=== PATIENT | female | born 1985 | race Caucasian/White ===

== ENCOUNTER 2022-04-28 11:25 | Inpatient (IN) | payer OTHER, SELFPAY ==
[2022-04-28] VITALS (29 sets, daily range): BP systolic 92–133; BP diastolic 55–85; PULSE 85–145; RESP 15–16; TEMP 36.7–37.2; O2SAT 96–100; BMI 25.1
[2022-04-28] MEDS: CEFAZOLIN 2 GM in 0.9 % SODIUM CHLORIDE Mini-bag 100 ML IVPB (11:54)
[2022-04-28] MEDS: LIDOCAINE 1 % PF 30 ML INJECTION ×2 (12:00→12:20)
[2022-04-28] MEDS: KETOROLAC 30 MG/ML inj IVP (12:06)
[2022-04-28] MEDS: fentaNYL 100 MCG/2 ML inj IVP (12:06)
[2022-04-28 12:18] LABS: Basophils Percent Auto 0.1 % (0.0-3.0); Hemoglobin* 11.5 gm/dL (12.0-16.0); Mean Corpuscular HGB Conc 34 gm/dL (32-36); Mean Corpuscular Hemoglobin 32 pg (26-34); Mean Corpuscular Volume 94 fL (80-100); Monocytes Percent Auto 7.1 % (0.0-11.0); Neutrophils Percent Auto 88.4 % (42.0-72.0); Platelet Count* 228 K/uL (140-440); RDW Coefficient of Variation % 13.1 % (11.5-15.5)
[2022-04-28 12:29] LABS: White Blood Count* 44.29 K/uL (4.50-11.00)
[2022-04-28 12:30] LABS: INR 0.99 (0.91-1.10); Prothrombin Time 13.5 Seconds; Slide Review Reflex Yes
[2022-04-28 12:31] LABS: Fibrinogen* 345 mg/dL (200-450); Partial Thromboplastin Time* 28 Seconds (23-33)
--- NOTE | 2022-04-28 12:48 | W.PM.LDBA ---
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 Patient was 39 4/7 weeks. Purchasing Manager who is here with patient and came with patient on the ambulance, states that her EBL from delivery was about 1700mL. She identified a perineal laceration and was concerned it was a 3rd degree laceration. She also had to manually remove the placenta after incomplete removal initially. Patient received 2 injections of 10 units of Oxytocin and 800mcg of rectal cytotec. We were called by marshmallow machine worker en route to hospital by ambulance. Upon arrival patient was alert, active and oriented, baby was with her at her chest. She had one IV line in place and had received 1 liter of fluid. Vital signs notable for tachycardia in the 115-130s range. Normal blood pressure, normal O2 saturation. Baby was placed in the warmer and evaluated by pie bakery laborer please refer to his note for further details. A second IV line was obtained ALEXANDRO. 1g Tranexamic acid was given. Due to previous manipulation during home delivery and my further uterine manipulation I also recommended giving 2g of Ancef. Patient states that she started with contractions las night, she was admitted by care team at 5:22am and delivered at 9:37am. Purchasing Manager will be faxing evidence of care and lab work results, by verbal communication we were told patient is RH negative, GBS negative. Received evidence of care from [facility]: LMP: 07/25/2021, OSVALDO: 05/01/22 First visit: 09/06/21, total visits 13 Labs: 04/01/22: GBS negative, BV and yeast diagnosed (treated with PO Diflucan and Flagyl) 03/04/22: >100,000 colonies of E.Coli (Treated with Macrobid) 02/04/22: 28 week labs: Antibody scree negative, Hgb: 12g/dL, hematocrit: 42.9, Platelets: 203 01/31/22: FBS: 81, 4io23GWF:88, 2 qo23ICB: 92 01/07/22:Hgb: 11.6, AST: 16, ALT: 11, BUN: 5, Creatinine: 0.50 11/19/21; AFP; Screen negative. 09/06/2021: 1st trimester labs: Blood type A negative, hemoglobin 14.2, platelets [id number], negative chlamydia and gonorrhea, rubella non immune, RPR nonreactive, hepatitis-B surface antigen negative, HIV nonreactive, TSH: 1.66, A1c 5.1, normal vitamin-D, hepatitis-C negative. Last Pap Smear: 2020, normal Imagin12/11/2021: Anatomy scan: Single live intrauterine 20 weeks and 2 days, nose/lip view was not well visualized, recommend short-term follow-up. Otherwise normal anatomy scan. There is an anterior placenta. Ob Hx: 2019/ / Home /Girl/ 2nd degree perineal laceration/7 pounds 2021: Current Medical problems: Vegan, Hx LEEP, Hx. of anxiety, cold sores, rubella non immune Medications: Multiple vitamins and supplements Allergies: Sulfa (hives), shellfish Surgeries:Ganglion cyst removal from foot, sinus surgery Social: Non smoker, no alcohol, OB - H&P: Exam Physical Exam: Vital signs: Pulse BP Pulse Ox 121 H 106/55 L 100 04/28/22 12:25 04/28/22 12:25 04/28/22 12:45 Narrative: Gen: AAOx3 Abd: Uterus well contracted at umbilicus. Tender to palpation. Pelvic: A large pad and blue chux removed these were completely soaked, add 500mL to EBL. A second degree perineal laceration was identified and repaired in the usual manner utilizing Vicryl 3-0 after injecting the area with Lidocaine 1% a total of 25mL utilized. Pelvic exam showed large amount of blood clots at the vaginal vault. Bladder was drained and obtained 300mL of concentrated urine. removed a total of 300mL in blood clots. A bedside US was performed and the lower uterine segment seemed to be thicker and more heterogenous it did not show increased vascularity. Recommendation was given for a manual sweep, this returned more blood clots and what looks to be concerning for retained placental tissue. 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 Purchasing Manager states that increased bleeding after delivery associated with perineal laceration and need for manual delivery of retained parts of placenta. EBL prior to arrival 1700mL. Upon evaluation evidence of second degree perineal laceration repaired. Persistent large amount of blood clots and bedside US concerning for retained products of conception/blood clots. My EBL so far 2500-2700mL(adding soaked sponges-still pending to weigh them). Initial lab work shows a normal hemoglobin, hemoglobin most be close to 8-9mg/dL if her hemoglobin was 12mg/dL as per marshmallow machine worker at 36 weeks of . WBC is also significantly elevated, will repeat after she is more stable this most likely independent sales representative of hemoconcentration/dehydration. Recommended suction D&C at OR, discussed how procedure is performed, risks of surgery and signed informed consent. To OR.
[2022-04-28] MEDS: CEFAZOLIN 2 GM INJ IVP (13:36)
--- NOTE | 2022-04-28 14:07 | W.PM.GYNPROC ---
Procedure Note Date Seen: 04/28/22 Procedure Details: Preoperative diagnosis: Retained products of conception Postoperative diagnosis: Same Procedure: Suction uterine curettage Surgeon: Flower Sanderson MD Anesthesia: Monitored anesthesia care IV fluids: Please see anesthesia record EBL: 50 mL Findings: 1. Exam under anesthesia revealed a mobile midline uterus. There are no palpable adnexal masses. 2. Placental membranes and blood clots returned with suction curettage. Complications: None Procedure in detail: Patient was taken to the operating with IV running. 2g of Ancef given preop. She was placed in dorsal lithotomy position. Monitored anesthesia care was administered. She was prepped and draped in the usual sterile fashion. Her bladder was straight cathed. Exam under anesthesia was performed for the above-noted findings. Speculum was inserted. Cervix was grasped along its anterior lip with an Ring forceps. A size 12 rigid suction cannula was then passed through the cervix to the uterine fundus. Suction was applied, and the suction cannula was withdrawn along the path of insertion. This was repeated 3 more times, with obvious return of products of conception. A repeat bedside ultrasound confirmed a homogeneous and thin lower uterine segment. Procedure was deemed complete. The ring forceps was removed from the anterior lip the cervix, and hemostasis was noted. The speculum was then removed from the vagina. Patient tolerated procedure well and was taken recovery area in stable condition.
--- NOTE | 2022-04-28 14:15 | W.ANESCHARGE ---
Anesthesia Charges Start Date/Time Anesthesia Start Date: 04/28/22 Anesthesia Start Time: 13:26 Stop Date/Time Anesthesia Stop Date: 04/28/22 Anesthesia Stop Time: 14:07 Summary Emergency: Yes
[2022-04-28] MEDS: LACTATED RINGERS 1000 ML 1,000 ML 125 ML IV (14:34)
[2022-04-28 17:06] LABS: Basophils Percent Auto 0.1 % (0.0-3.0); Hematocrit 27.9 % (33.0-51.0); Hemoglobin* 9.6 gm/dL (12.0-16.0); Immature Granulocytes Abs Auto 0.21 K/uL (0.00-0.30); Lymphocytes Percent Auto 5.2 % (20-44); Mean Corpuscular HGB Conc 34 gm/dL (32-36); Mean Corpuscular Hemoglobin 32 pg (26-34); Mean Corpuscular Volume 92 fL (80-100); Monocytes Percent Auto 3.5 % (0.0-11.0); Neutrophils Percent Auto 90.6 % (42.0-72.0); Platelet Count* 185 K/uL (140-440); Red Blood Count 3.02 m/uL (4.00-5.20)
[2022-04-28 17:09] LABS: Slide Review Reflex Yes; White Blood Count* 33.32 K/uL (4.50-11.00)
[2022-04-28 17:11] LABS: Slide Review Acceptable Review (Acceptable)
[2022-04-28 17:16] LABS: Chloride* 101 mmol/L (96-114)
[2022-04-28 17:17] LABS: Albumin* 2.8 g/dL (3.3-5.0); Sodium* 129 mmol/L (135-149)
[2022-04-28 17:22] LABS: Fibrinogen* 332 mg/dL (200-450); INR 0.99 (0.91-1.10); Partial Thromboplastin Time* 31 Seconds (23-33); Prothrombin Time 13.5 Seconds
[2022-04-28 17:23] LABS: Alanine Aminotransferase* 37 U/L (4-35); Alkaline Phosphatase* 121 U/L (40-150); Aspartate Amino Transferase* 49 U/L (12-35); Bilirubin Total* 0.2 mg/dL (0.1-1.5); Blood Urea Nitrogen* 6 mg/dL (5-24); Calcium* 8.3 mg/dL (8.4-10.6); Carbon Dioxide* 19 mmol/L (20-32); Creatinine* 0.4 mg/dL (0.5-1.5); Est. Creatinine Clearance* 159.29; Estimated Glomerular Filt Rate 131 ml/min; Glucose* 175 mg/dL (60-115); Total Protein* 5.2 g/dL (6.0-8.3)
[2022-04-28 19:18] LABS: Slide Review Acceptable Review (Acceptable)
[2022-04-28 19:22] LABS: SARS PCR* Negative SARS-CoV-2 (Negative)
[2022-04-28] MEDS: IBUPROFEN 600 MG TABLET PO (20:01)
[2022-04-28 21:31] LABS: Appearance Urine Clear (Clear); Bilirubin Urine Negative (Negative); Blood Urine 3+ (Negative); Color Urine Pink (Yellow); Glucose Urine 1+ (Negative); Ketones Urine Negative (Negative); Leukocyte Esterase Urine Trace (Negative); Nitrite Urine Negative (Negative); Protein Urine 1+ (Negative); Specific Gravity Urine <= 1.005 (1.000-1.030); Urobilinogen Urine 0.2 (0.2-1.0); pH Urine 5.5 (5.0-8.5)
[2022-04-28 21:46] LABS: WBC Urine 0-2 (0-5)
[2022-04-28] MEDS: ACETAMINOPHEN 500 MG TABLET 1000 MG PO (22:56)
[2022-04-29] VITALS (12 sets, daily range): BP systolic 88–119; BP diastolic 47–70; PULSE 79–98; RESP 16–18; TEMP 36.6–37; O2SAT 96–100
[2022-04-29] MEDS: IBUPROFEN 600 MG TABLET PO ×3 (02:22→15:13)
[2022-04-29] MEDS: ACETAMINOPHEN 500 MG TABLET 1000 MG PO (05:13)
[2022-04-29 06:29] LABS: Basophils Percent Auto 0.1 % (0.0-3.0); Eosinophils Percent Auto 0.4 % (0.0-7.0); Hematocrit 23.2 % (33.0-51.0); Immature Granulocytes Abs Auto 0.13 K/uL (0.00-0.30); Lymphocytes Percent Auto 18.1 % (20-44); Mean Corpuscular HGB Conc 34 gm/dL (32-36); Mean Corpuscular Hemoglobin 32 pg (26-34); Mean Corpuscular Volume 94 fL (80-100); Neutrophils Percent Auto 72.9 % (42.0-72.0); Platelet Count* 182 K/uL (140-440); RDW Coefficient of Variation % 13.3 % (11.5-15.5); Red Blood Count 2.46 m/uL (4.00-5.20)
[2022-04-29 06:55] LABS: Hemoglobin* 7.8 gm/dL (12.0-16.0); White Blood Count* 25.91 K/uL (4.50-11.00)
--- NOTE | 2022-04-29 07:56 | PM.OBPNVD1 ---
OB - PN:Subj Subjective Date Seen: 04/29/22 Patient comments OB post-: pain well controlled, tolerating diet, flatus present and other (feels very weak, tired and sore) [place] status: and doing well feeding status: exclusively Narrative: Day 1:? Vaginal Delivery at 39 and 4/7 weeks.? ?? Complications:? PPH, post D&C? The patient feels well.? The pain is well controlled with current medications.? She has no new complaints.? Urinary output is adequate and she is voiding without difficulty.? Has a good appetite, is tolerating a general diet, is passing flatus, and has not had a bowel movement.? Has?scant amount of rubra lochia.? She is feels very weak with ambulation and feels she needs assistance to feel comfortable. She is very sore and fatigued. Will consult with Dr. Jovel for blood transfusion vs IV iron. Patient open to either option. ? OB - PN: Obj Exam Physical Exam: Vital signs: Temp Pulse Resp BP Pulse Ox O2 Del Method 97.9 F 95 18 92/58 L 97 04/29/22 05:18 04/29/22 05:18 04/29/22 05:18 04/29/22 05:18 04/29/22 05:18 04/29/22 05:18 Constitutional: Constitutional: no acute distress Routine HEENT Exam: Head: Present normal inspection Eye: Present normal appearance Routine Neck Exam: Neck: Present full ROM Detailed Neck Exam: Thyroids: Thyroid: Present normal Routine Respiratory Exam: Respiratory: Present CTA bilaterally Routine Cardiovascular Exam: Cardiovascular: Present RRR (elevated HR) Routine Exam: Patient deferred: external exam (sitting in chair nursing) Routine Extremities Exam: Comments: Did not visualize ambulation but weak and fatigued per patient report. Routine Back/Spine/Pelvis Exam: Back/Spine: Present full ROM Routine Neurological Exam: Neurological: Present alert and oriented X3 Routine Psychiatric Exam: Psychiatric: Present normal affect OB - PN: Obj Data Labs Labs: Laboratory Results - last 24 hr 04/28/22 04/28/22 04/28/22 11:30 11:30 11:30 WBC 44.29 H* RBC 3.60 L Hgb 11.5 L Hct 34.0 MCV 94 MCH 32 MCHC 34 RDW Coeff of Jerod 13.1 Plt Count 228 Neut % (Auto) 88.4 H Lymph % (Auto) 3.0 L [place] % (Auto) 7.1 Eos % (Auto) 0.0 Baso % (Auto) 0.1 Neut # (Auto) 39.20 H Lymph # (Auto) 1.30 Ashley # (Auto) 3.10 H Eos # (Auto) 0.00 Baso # (Auto) 0.00 Abs Immat Gran (auto) 0.60 H Diff Slide Review Acceptable Review INR 0.99 APTT 28 Fibrinogen 345 Sodium Potassium Chloride Carbon Dioxide BUN Creatinine Estimated Creat Clear Estimated GFR Glucose Calcium Total Bilirubin AST ALT Alkaline Phosphatase Total Protein Albumin Urine Color Urine Appearance Urine pH Ur Specific [place] Urine Protein Urine Glucose (UA) Urine Ketones Urine Blood Urine Nitrite Urine Bilirubin Urine Urobilinogen Ur Leukocyte Esterase Urine RBC Urine WBC Ur Squamous Epith Cells Urine Bacteria SARS-CoV-2 (PCR) Blood Type A Negative Antibody Screen NEGATIVE Crossmatch ([facility]) See Detail 04/28/22 04/28/22 04/28/22 16:44 16:44 16:44 WBC 33.32 H* RBC 3.02 L Hgb 9.6 L Hct 27.9 L MCV 92 MCH 32 MCHC 34 RDW Coeff of Jerod 13.0 Plt Count 185 Neut % (Auto) 90.6 H Lymph % (Auto) 5.2 L Ashley % (Auto) 3.5 Eos % (Auto) 0.0 Baso % (Auto) 0.1 Neut # (Auto) 30.20 H Lymph # (Auto) 1.70 Ashley # (Auto) 1.20 H Eos # (Auto) 0.00 Baso # (Auto) 0.00 Abs Immat Gran (auto) 0.21 Diff Slide Review Acceptable Review INR 0.99 APTT 31 Fibrinogen 332 Sodium 129 L Potassium 4.0 Chloride 101 Carbon Dioxide 19 L BUN 6 Creatinine 0.4 L Estimated Creat Clear 159.29 Estimated GFR 131 Glucose 175 H Calcium 8.3 L Total Bilirubin 0.2 AST 49 H ALT 37 H Alkaline Phosphatase 121 Total Protein 5.2 L Albumin 2.8 L Urine Color Urine Appearance Urine pH Ur Specific [place] Urine Protein Urine Glucose (UA) Urine Ketones Urine Blood Urine Nitrite Urine Bilirubin Urine Urobilinogen Ur Leukocyte Esterase Urine RBC Urine WBC Ur Squamous Epith Cells Urine Bacteria SARS-CoV-2 (PCR) Blood Type Antibody Screen Crossmatch ([facility]) 04/28/22 04/28/22 04/29/22 18:30 21:14 06:20 WBC 25.91 H* RBC 2.46 L Hgb 7.8 L* Hct 23.2 L MCV 94 MCH 32 MCHC 34 RDW Coeff of Jerod 13.3 Plt Count 182 Neut % (Auto) 72.9 H Lymph % (Auto) 18.1 L Ashley % (Auto) 8.0 Eos % (Auto) 0.4 Baso % (Auto) 0.1 Neut # (Auto) 18.90 H Lymph # (Auto) 4.70 H Ashley # (Auto) 2.10 H Eos # (Auto) 0.10 Baso # (Auto) 0.00 Abs Immat Gran (auto) 0.13 Diff Slide Review INR APTT Fibrinogen Sodium Potassium Chloride Carbon Dioxide BUN Creatinine Estimated Creat Clear Estimated GFR Glucose Calcium Total Bilirubin AST ALT Alkaline Phosphatase Total Protein Albumin Urine Color [place] A Urine Appearance Clear Urine pH 5.5 Ur Specific [place] <= 1.005 Urine Protein 1+ A Urine Glucose (UA) 1+ A Urine Ketones Negative Urine Blood 3+ A Urine Nitrite Negative Urine Bilirubin Negative Urine Urobilinogen 0.2 Ur Leukocyte Esterase Trace A Urine RBC 10-25 A Urine WBC 0-2 Ur Squamous Epith Cells None Urine Bacteria None SARS-CoV-2 (PCR) Negative SARS-CoV-2 Blood Type Antibody Screen Crossmatch ([facility]) OB - PN: A/P Vaginal Delivery Assessment and Plan (1) hemorrhage, delivered: Status: Acute (2) Lactating mother: Status: Acute (3) Anemia, : Status: Acute (4) Vaginal delivery: Status: Acute Plan 37 year old on day 1.? 1. cares.? 2. Anticipate discharge tomorrow. 3. Consider blood transfusion vs IV iron Plan day: 1 Plan: routine care
[2022-04-29] MEDS: FERROUS SULFATE 325 MG TABLET PO (08:47)
[2022-04-29] MEDS: DOCUSATE SODIUM 100 MG CAPSULE PO (08:47)
[2022-04-29 22:34] LABS: Slide Review Reflex No
--- NOTE | 2022-04-29 23:24 | PM.OBPNVD1 ---
OB - PN:Subj Subjective Date Seen: 04/29/22 Patient comments OB post-: pain well controlled, tolerating diet and flatus present infant status: and doing well [place] feeding status: exclusively Narrative: Reported by RN that she felt dizzy on standing. She also felt that she was having trouble focusing on things for a long period of time. After a discussion of IV iron vs a blood transfusion the patient decided to get a blood transfusion. This helped a few hours later but she continued to feel weak, fatigued, and unsteady with ambulation. She was offered another RBC transfusion which she accepted. Will reevaluated Hgb in the morning. OB - PN: Obj Exam Physical Exam: Vital signs: Temp Pulse Resp BP Pulse Ox O2 Del Method 98.3 F 94 18 101/64 98 04/29/22 17:03 04/29/22 17:03 04/29/22 17:03 04/29/22 17:03 04/29/22 17:03 04/29/22 17:03 OB - PN: Obj Data Labs Labs: Laboratory Results - last 24 hr 04/28/22 04/29/22 11:30 06:20 WBC 25.91 H* RBC 2.46 L Hgb 7.8 L* Hct 23.2 L MCV 94 MCH 32 MCHC 34 RDW Coeff of Jerod 13.3 Plt Count 182 Neut % (Auto) 72.9 H Lymph % (Auto) 18.1 L [place] % (Auto) 8.0 Eos % (Auto) 0.4 Baso % (Auto) 0.1 Neut # (Auto) 18.90 H Lymph # (Auto) 4.70 H [place] # (Auto) 2.10 H Eos # (Auto) 0.10 Baso # (Auto) 0.00 Abs Immat Gran (auto) 0.13 Blood Type A Negative Antibody Screen NEGATIVE Crossmatch ([facility]) See Detail OB - PN: A/P Vaginal Delivery Assessment and Plan (1) hemorrhage, delivered: Status: Acute (2) Lactating mother: Status: Acute (3) Anemia, : Status: Acute (4) Vaginal delivery: Status: Acute Plan Plan: other (RBC transfusion)
[2022-04-30] MEDS: IBUPROFEN 600 MG TABLET PO ×2 (00:37→08:42)
[2022-04-30 00:38] VITALS: BP 96/61; PULSE 88; RESP 16; TEMP 36.9
[2022-04-30] MEDS: LANOLIN CREAM 1 APPLIC TOPICAL (00:38)
[2022-04-30 01:14] VITALS: BP 104/69; PULSE 95; RESP 18; O2SAT 97
[2022-04-30 01:54] VITALS: BP 97/62; PULSE 84; RESP 16; TEMP 36.8
[2022-04-30 07:10] LABS: Hemoglobin* 9.3 gm/dL (12.0-16.0)
--- NOTE | 2022-04-30 08:26 | PM.OBPNVD1 ---
OB - PN:Subj Subjective Time Seen by Provider: 08:26 Date Seen: 04/30/22 Interval history: Patient is a 37 year old, G 2 now P 2? admitted on 04/28/22 at 39 Weeks, 0 Days gestation for PP hemorrhage, retained placenta, and partial 3rd degree following a homebirth .? She had an complicated vaginal delivery.? She delivered a viable male .? She is breast feeding and is struggling with latch. Has seen , and has a hand pump. Does not know how to hand express, and does not feel she previously had the strnegth.? the patient has been struggling. Prior to her blood transfusion, she was dizzy and very fatigued. She feels that has improved since her blood transfusion.? She is now struggling mentally with fatigue and misses her other child. Has not slept much since the . Does have a hx of PP depression or anxiety, and feels she is struggling with her traumatic . Vitals have been stable.? She has remained afebrile. Patient comments OB post-: pain well controlled (Sill struggling with being sore, encouraged continious use of ibuprofen and tylenol if needed, heat on her back to help. ) and tolerating diet [place] status: (having a hard time with latch) feeding status: exclusively (expressing as needed when not latching) OB - PN: Obj Exam Physical Exam: Vital signs: Temp Pulse Resp BP Pulse Ox O2 Del Method 98.3 F 84 16 97/62 97 04/30/22 01:54 04/30/22 01:54 04/30/22 01:54 04/30/22 01:54 04/30/22 01:14 04/29/22 23:30 Constitutional: Constitutional: mild distress (tearful, fatigued) and cooperative Routine HEENT Exam: Head: Present normocephalic Routine Neck Exam: Neck: Present full ROM Routine Respiratory Exam: Respiratory: Present CTA bilaterally Routine Cardiovascular Exam: Cardiovascular: Present RRR Routine Abdominal Exam: Abdominal: Present normal bowel sounds Fundus: Present firm (1 below u) Routine Exam: External: Present lacerations (well approximated and healing) and swelling (mild edema); Absent ecchymosis or erythema Perineum Description: Edematous Routine Extremities Exam: Extremities: Present full ROM; Absent pedal edema Routine Back/Spine/Pelvis Exam: Back/Spine: Present full ROM Routine Skin Exam: Skin: Present dry, intact and normal color Routine Neurological Exam: Neurological: Present alert and oriented X3 Routine Psychiatric Exam: Psychiatric: Present normal affect and normal thought process Detailed Psychiatric Exam: Mood and affect: Present tearful OB - PN: Obj Data Labs Labs: Laboratory Results - last 24 hr 04/28/22 04/30/22 11:30 06:54 Hgb 9.3 L Blood Type A Negative Antibody Screen NEGATIVE Crossmatch ([facility]) See Detail OB - PN: A/P Vaginal Delivery Assessment and Plan (1) hemorrhage, delivered: Status: Acute (2) Lactating mother: Status: Acute (3) Anemia, : Status: Acute (4) Vaginal delivery: Status: Acute Plan Comments: Acute anemia -improved after 2 units of blood. -encouraged continued supplementation for 6 weeks Hx of depression or anxiety. traumatic experience -encouraged debriefing with shirt ironer supervisor -encouraged therapy if desired -reviewed option of medication if needed - encouraged getting some sleep mother -may follow up [facility] . -has support from home knitter wire mesh and meat specialist Discharge home.
--- NOTE | 2022-04-30 08:40 | PM.OBDSVD1 ---
DS: Providers Provider Time Seen by Provider: 08:40 Date Seen: 04/30/22 Date of admission: 04/28/22 11:25 Admitting Clinician: Flower Sanderson MD Attending Physician on discharge: Flower Sanderson MD DS: Diagnosis Discharge Diagnosis (1) Vaginal delivery: Status: Acute (2) Anemia, : Status: Acute (3) Lactating mother: Status: Acute (4) hemorrhage, delivered: Status: Acute Exam Const: Vital Signs, click to edit/add: Vital Signs - 24 hr 04/29/22 10:26 04/29/22 10:43 04/29/22 11:28 Temperature 97.9 F 98.4 F 98.3 F Pulse Rate 90 91 90 Pulse Rate [Pulse Oximeter] Respiratory Rate 16 16 16 Blood Pressure 94/49 L 101/57 L 97/59 L Blood Pressure [Le ft Arm] Blood Pressure [Ri ght Arm] Pulse Oximetry 98 96 98 Oxygen Delivery Me thod 04/29/22 12:06 04/29/22 12:36 04/29/22 17:03 Temperature 98.6 F 98.5 F 98.3 F Pulse Rate 85 90 Pulse Rate [Pulse Oximeter] 94 Respiratory Rate 16 16 18 Blood Pressure 88/47 L 88/48 L Blood Pressure [Le ft Arm] Blood Pressure [Ri ght Arm] 101/64 Pulse Oximetry 98 97 98 Oxygen Delivery Me thod Room Air 04/29/22 23:30 04/29/22 23:36 04/29/22 23:53 Temperature 97.9 F 98.5 F Pulse Rate 93 84 Pulse Rate [Pulse Oximeter] 98 Respiratory Rate 16 16 16 Blood Pressure 108/60 104/69 Blood Pressure [Le ft Arm] 108/60 Blood Pressure [Ri ght Arm] Pulse Oximetry 100 100 Oxygen Delivery Me thod Room Air 04/30/22 00:38 04/30/22 01:14 04/30/22 01:54 Temperature 98.5 F 98.3 F Pulse Rate 88 95 84 Pulse Rate [Pulse Oximeter] Respiratory Rate 16 18 16 Blood Pressure 96/61 104/69 97/62 Blood Pressure [Le ft Arm] Blood Pressure [Ri ght Arm] Pulse Oximetry 97 Oxygen Delivery Me thod Documenting provider has reviewed patient's vital signs: yes Common normals: no apparent distress and oriented x3 Orientation/consciousness: Yes awake HENMT: Common normals: normocephalic Head and scalp: normocephalic Neck & C-Spine: Common normals: full ROM and supple Chest: Common normals: inspection of chest normal Resp: Common normals: normal respiratory effort Cardio: Common normals: regular rate and regular rhythm Rate: regular rate Rhythm: regular rhythm GI: Common normals: Normal to inspection, nondistended, normoactive bowel sounds present : Uterus: U/1 Lochia: small Extremity: Common normals: normal to inspection, full ROM and no pedal edema Neuro: Common normals: oriented x3 Sensorium/orientation: awake Skin: Common normals: no rashes or lesions noted General skin exam: no rashes or lesions noted OB - DS: Summary Hospital Course Hospital Course: The patient is a 37 year old G 2 P 2 at 39.0 weeks gestation that was admitted to the Center on 04/28/22 for pp hemorrhage, retained placenta and partial 3rd degree following a home . She had an complicated vaginal delivery. She delivered a viable male infant. She is breast feeding, and struggling with latch. the patient has struggled with dizziness which improved after a blood transfusion. She is now fatigued and tearful over the , missing her 2 year old and lack of sleep. Peripartum Data Infant delivery method: Vaginal Laceration description: Perineal - 3rd Degree Procedures: Procedures Operation Date: 04/28/22 13:40 Actual Procedure Side Surgeon p Suction D&C Flower Sanderson MD complications: transfusion (2 units) and retained placenta (D & C done) Gender: Male Infant Discharge Plan: Home Status at Discharge Functional status at discharge: independent ambulation Overall status at discharge: patient is progressing back to baseline Time Spent with Patient Time attestation: Total time spent providing and/or coordinating discharge services: Time spent: Less than 30 minutes Discharge Plan Discharge Disposition: Home, Self-Care Date of Admission: 04/28/22 11:25 Attending Provider on Discharge: Radha Seaman Condition: Stable Anticipated Discharge Date/Time: 04/30/22 13:00 Discharge Medications: New docusate sodium 100 mg Capsule 100 mg PO BID Qty: 100 0RF ibuprofen 600 mg Tablet 600 mg PO Q6H PRNQty: 60 0RF Discharge Orders: Discharge Order (Routine); Ordered 04/30/22 Ordered By: Radha Seaman Patient Education: OB Vaginal/Breast Feeding Activity Restrictions/Additional Instructions: Continue colace twice a day, miralax as needed to keep stools soft. Activity Level: Activity as Tolerated Discharge Diet: Regular Follow Up Appointments: Radha Seaman CNM [Certified Nurse Medical Charge Entry Specialist] - Forms: [facility] Info Instructions
[2022-04-30] MEDS: DOCUSATE SODIUM 100 MG CAPSULE PO (08:42)
[2022-04-30] MEDS: FERROUS SULFATE 325 MG TABLET PO (08:43)
[2022-04-30 09:30] VITALS: BP 107/66; PULSE 96; RESP 16; TEMP 36.9; O2SAT 97
== END 2022-04-30 13:50 | disposition home or self-care (01) | DRG 769 ==
PROVIDERS: Advanced Practice Midwife; Admitting Provider Obstetrics & Gynecology; Visit Provider Obstetrics & Gynecology
PROC: 10D17ZZ Extraction of Products of Conception, Retained, Via Natural or Artificial Opening (ICD-10-PCS; principal; 2022-04-28 13:30)
DX: O72.1 Other immediate postpartum hemorrhage (principal); O72.2 Delayed and secondary postpartum hemorrhage; D62 Acute posthemorrhagic anemia; O70.1 Second degree perineal laceration during delivery; O90.81 Anemia of the puerperium
CPT/HCPCS: 01965; 36415; 36430; 76815; 80053; 81001; 85018; 85025; 85384; 85610; 85730; 86850; 86900; 86901; 86922; 87635; 88305; 99140; A9270; J0690; J1100; J1885; J2001; J2250; J2405; J2704; J3010; J3490; J7120; P9016

== ENCOUNTER 2024-12-23 12:18 | Outpatient (CLI) | payer OTHER, SELFPAY ==
--- NOTE | 2024-12-23 12:15 | CRLHL7_ITS ---
For Patients: As a result of the Cures Act, medical imaging exams and procedure reports are released immediately into your electronic medical record. You may view this report before your referring provider. If you have questions, please contact your health care provider. OB ULTRASOUND LESS THAN 14 WEEKS, 12/23/2024 CLINICAL HISTORY: Dating and viability. COMPARISON: None. TECHNIQUE: Real time krishna scale imaging of the fetus was performed. Transvaginal imaging performed. FINDINGS: IMAGING: Transvaginal. LMP: 10/25/2024. OSVALDO by LMP: 08/01/2025. GA: 8 weeks 3 days. CRL: 1.7 cm, 8 weeks 1 day. OSVALDO 08/03/2025. FHR: 185 bpm. 183-185. GEST SAC: 3.0 cm, appears WNL. YOLK SAC: 2.8 mm, appears WNL. RIGHT OV: WNL 1.8 X 3.1 X 2.3 cm LEFT OV: WNL 2.9 x 1.9 x 2.0 cm. CL IMPRESSION: 1. Single living intrauterine measuring 8 weeks 1 day and sonographic due date 08/03/2025. 2. Subchorionic hemorrhage measures 18 x 10 x 11 mm. 3. Corpus luteal cyst right ovary. Tres Pierson M.D. Diagnostic Radiologist [email or web address] Transcribed: 9:32 am DW/Dictated by: Tres Pierson MD @ 12/27/2024 5:48:00 AM (Electronically Signed)
== END 2024-12-23 12:19 | disposition home or self-care (01) ==
LOC: US 12:20
PROVIDERS: Visit Provider Physician Assistant
DX: Z34.91 Encounter for supervision of normal pregnancy, unspecified, first trimester (principal); O20.9 Hemorrhage in early pregnancy, unspecified; O34.81 Maternal care for other abnormalities of pelvic organs, first trimester; N83.11 Corpus luteum cyst of right ovary; Z3A.08 8 weeks gestation of pregnancy
CPT/HCPCS: 76817; 83021; 84443; 86703; 86706; 86803; 86850; 86900; 86901; 87086; 87340

== ENCOUNTER 2024-12-23 13:47 | Outpatient (CLI) | payer OTHER, SELFPAY | END 2024-12-23 13:48 | disposition home or self-care (01) | PROVIDERS: Visit Provider Physician Assistant | DX: Z34.91 Encounter for supervision of normal pregnancy, unspecified, first trimester (principal); Z3A.08 8 weeks gestation of pregnancy | CPT/HCPCS: 83020; 83021; 84144; 84443; 85660; 86592; 86703; 86704; 86706; 86762; 86787; 86803; 86850; 86900; 86901; 87086; 87340 ==

== ENCOUNTER 2025-05-06 09:07 | Outpatient (CLI) | payer OTHER, SELFPAY | END 2025-05-06 09:08 | disposition home or self-care (01) | LOC: NFLDREF 09:08 | PROVIDERS: Visit Provider Midwife | DX: Z34.93 Encounter for supervision of normal pregnancy, unspecified, third trimester (principal); Z67.91 Unspecified blood type, Rh negative | CPT/HCPCS: J2791 ==

== ENCOUNTER 2025-06-03 07:04 | Outpatient (CLI) | payer OTHER, SELFPAY ==
--- NOTE | 2025-06-03 07:15 | CRLHL7_ITS ---
For Patients: As a result of the Century Cures Act, medical imaging exams and procedure reports are released immediately into your electronic medical record. You may view this report before your referring provider. If you have questions, please contact your health care provider. OBSTETRICAL ULTRASOUND ??? FOLLOW-UP INDICATION: Advanced maternal age. Follow-up growth. CLINICAL HISTORY: LMP: 10/25/2024 OSVALDO by LMP: 08/01/2025 Gestational Age: 31 weeks 4 days COMPARISON: 12/23/2024 TECHNIQUE: Real-time krishna-scale transabdominal imaging of the fetus was performed. FINDINGS: Fetus: Single Cervix: Not visualized positioning: Vertex Amniotic Fluid: 6.0 cm SDP Placenta technique: Transabdominal Placenta position: Anterior heart rate: 150 bpm BIOMETRY: BPD: 7.9 cm, 31 weeks 5 days, 44.1% HC: 29.7 cm, 32 weeks 6 days, 47.9% AC: 29.5 cm, 33 weeks 3 days, 91.9% FL: 6.1 cm, 31 weeks 5 days, 41.8% FL/AC Ratio: 20.8% HC/AC ratio: 1.0 EFW: 2040 grams; 4 lbs. 8 oz. age by this ultrasound: 32 weeks 3 days OSVALDO by this ultrasound: 07/26/2025 Percentile by OSVALDO: 77.0% IMPRESSION: 1. Sonographic gestational age is 32 weeks 3 days and sonographic due date is 07/26/2025. Sonographic age is 6 days ahead of the clinical age. 2. Estimated weight is 77th percentile. Abdominal circumference is 92nd percentile. TRES ANTHONY M.D. Diagnostic Radiologist [email or web address] Transcribed: 10:[address]/Dictated by: Tres Anthony MD @ 06/03/2025 9:29:00 AM (Electronically Signed)
== END 2025-06-03 07:05 | disposition home or self-care (01) ==
PROVIDERS: Visit Provider Midwife
DX: O09.523 Supervision of elderly multigravida, third trimester (principal); O36.63X0 Maternal care for excessive fetal growth, third trimester, not applicable or unspecified; Z3A.31 31 weeks gestation of pregnancy
CPT/HCPCS: 76815

== ENCOUNTER 2025-06-30 10:52 | Outpatient (CLI) | payer OTHER, SELFPAY | END 2025-06-30 10:53 | disposition home or self-care (01) | LOC: RAD 10:53 | PROVIDERS: Visit Provider Advanced Practice Midwife | DX: O09.93 Supervision of high risk pregnancy, unspecified, third trimester (principal); Z82.49 Family history of ischemic heart disease and other diseases of the circulatory system; Z3A.35 35 weeks gestation of pregnancy | CPT/HCPCS: 93306 ==

== ENCOUNTER 2025-07-04 10:11 | Outpatient (CLI) | payer OTHER, SELFPAY ==
--- NOTE | 2025-07-04 10:15 | CRLHL7_ITS ---
For Patients: As a result of the Cures Act, medical imaging exams and procedure reports are released immediately into your electronic medical record. You may view this report before your referring provider. If you have questions, please contact your health care provider. OBSTETRICAL ULTRASOUND ??? BIOPHYSICAL PROFILE INDICATION: Advanced maternal age. CLINICAL HISTORY: OSVALDO by LMP: 08/01/2025 Gestational Age: 36 weeks 0 days COMPARISON: 06/03/2025, 03/24/2025, 03/03/2025. TECHNIQUE: Real-time krishna-scale transabdominal imaging of the fetus was performed. FINDINGS: Fetus: Single Cervix: Not visualized positioning: Vertex Amniotic Fluid: 5.2 cm SDP BIOPHYSICAL PROFILE: Gross body movements: 2 tone: 2 Respiratory activity: 2 Amniotic fluid SDP: 2 Total score: 8 Placenta technique: Transabdominal Placenta position: Anterior heart rate: 152 bpm IMPRESSION: Normal biophysical profile score of 8/8. TRES ANTHONY M.D. Diagnostic Radiologist [email or web address] Transcribed: 12:[address]/Dictated by: Tres Anthony MD @ 07/04/2025 10:45:00 AM (Electronically Signed)
== END 2025-07-04 10:12 | disposition home or self-care (01) ==
LOC: US 10:11
PROVIDERS: Visit Provider Midwife
DX: O09.513 Supervision of elderly primigravida, third trimester (principal)
CPT/HCPCS: 76819

== ENCOUNTER 2025-07-04 13:09 | Outpatient (CLI) | payer OTHER, SELFPAY ==
[2025-07-05 13:00] LABS: Strep B DNA Probe Negative (Negative)
[2025-07-05 13:09] LABS: Strep B Susceptibility Needed? No
== END 2025-07-04 13:10 | disposition home or self-care (01) ==
LOC: NFLDREF 13:10
PROVIDERS: Visit Provider Advanced Practice Midwife
DX: Z34.93 Encounter for supervision of normal pregnancy, unspecified, third trimester (principal)
CPT/HCPCS: 87081; 87653